=== PATIENT | female | born 1960 | race Caucasian/White ===

== ENCOUNTER 2017-05-23 19:35 | Emergency (ER) | payer SELFPAY ==
[~2017-05-23] VITALS: Ht 157.5 cm; Wt 60.8 kg
[2017-05-23 21:58] VITALS: BP 129/76
== END 2017-05-23 22:18 | disposition home or self-care (01) ==
LOC: EME 19:35
PROC: 0HQ0XZZ Repair Scalp Skin, External Approach (ICD-10-PCS; principal; 2017-05-23)
DX: S01.01XA Laceration without foreign body of scalp, initial encounter (principal); W18.09XA Striking against other object with subsequent fall, initial encounter; Y93.89 Activity, other specified; Z87.891 Personal history of nicotine dependence
CPT/HCPCS: 99281; 99284